=== PATIENT | male | born 1975 | race Caucasian/White ===

== ENCOUNTER 2021-06-21 22:33 | Emergency (ER) | payer MEDICAID, MEDICARE ==
[~2021-06-21] VITALS: Ht 170.2 cm; Wt 66.0 kg
[2021-06-21 22:43] VITALS: BP 130/88
[2021-06-21] MEDS ORDERED: IBUPROFEN 600MG TABLET PO ONE (23:00)
[2021-06-21] MEDS ORDERED: TETANUS, DIPHTHERIA, PERTUSSIS VAC/PF 0.5ML (>10YR OLD) IM ONE (23:00)
== END 2021-06-22 00:56 | disposition left against medical advice (07) ==
LOC: ER 22:33 → EDBD 22:33 → ER 06-22 00:56
DX: S50.312A Abrasion of left elbow, initial encounter (principal); V03.19XA Pedestrian with other conveyance injured in collision with car, pick-up truck or van in traffic accident, initial encounter; Y93.89 Activity, other specified; Y92.89 Other specified places as the place of occurrence of the external cause; Y99.8 Other external cause status
CPT/HCPCS: 99283; Z7610